=== PATIENT | male | born 1965 | race Asian ===

== ENCOUNTER 2017-03-22 16:09 | Emergency (ER) | payer BC, MEDICAID ==
[~2017-03-22] VITALS: Ht 172.7 cm; Wt 81.6 kg
[~2017-03-22 16:09] MED LIST: NORCO 5-325 TA1 EACH ORAL
[2017-03-22 16:15] VITALS: BP 163/72
[2017-03-22] MEDS ORDERED: Surgicel 4in x 8in TOPIC ONE ×2 (16:56→17:21)
--- NOTE | 2017-03-22 17:29 | Emergency Room Report ---
History of Present Illness General Chief Complaint: General Complaint Source: Patient Present Illness HPI Patient presents with complaints of bleeding AV shunt Patient reports that the same thing happened about 2 weeks ago when the patient went to [facility] At this time denies any headache or visual changes denies any lightheadedness There was a 2 prong instruments in the left AV shunt after removing the first one there was heavy amount of bleeding Patient reports that he feels a scab had broken off A second prong was left in place And the patient sent to the ER He is awake alert and denies any other neuropathy or pain Allergies: Uncoded Allergies: HECTEROL (Allergy, Unknown, 03/22/17) Patient History Past Medical History: see triage record Pertinent Family History: none Reviewed Nursing Documentation: PMH: Agreed, PSxH: Agreed Nursing Documentation-PMH Past Medical History: No History, Except For Hx Cardiac Problems: No Hx Hypertension: Yes Hx Pacemaker: No Hx Asthma: No Hx COPD: No Hx Diabetes: Yes Hx Cancer: No Hx Gastrointestinal Problems: No Hx Dialysis: Yes - [facility], [facility], [facility] History Of Psychiatric Problem: No Hx Neurological Problems: No Hx Cerebrovascular Accident: No Hx Seizures: No Review of Systems All Other Systems: negative except mentioned in HPI Physical Exam Vital Signs Date Time Temp Pulse Resp B/P (MAP) Pulse Ox O2 Delivery O2 Flow Rate FiO2 03/22/17 15:58 99.3 90 20 177/89 94 Room Air Sp02 EP Interpretation: reviewed, normal General Appearance: well appearing, no apparent distress Head: normocephalic, atraumatic Eyes: bilateral eye PERRL, bilateral eye EOMI ENT: hearing grossly normal, normal pharynx, TMs + canals normal, uvula midline Neck: full range of motion, supple, no meningismus, no bony tend Respiratory: lungs clear, normal breath sounds, no rhonchi, no respiratory distress, no retraction, no accessory muscle use Cardiovascular #1: normal peripheral pulses, regular rate, rhythm, no edema, no gallop, no JVD, no murmur Gastrointestinal: normal bowel sounds, non tender, soft, no mass, no organomegaly, non-distended, no guarding, no hernia, no pulsatile mass, no rebound Genitourinary: no CVA tenderness Musculoskeletal: normal inspection Neurologic: oriented x3, responsive, 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, motor strength/ tone normal, sensory intact Psychiatric: mood/affect normal Skin: other - Left upper arm had dressing on top and there was a prolonged in place from dialysis, this was removed without any incidents, pressure dressing was applied good thrill on the AV shunt Lymphatic: normal inspection, no adenopathy Procedures Laceration/Wound Repair Progress The area in question left upper AV fistula had pressure dressing applied After further observation, the pressure was minimally released in patient continues to do well at this time stable for followup, Medical Decision Making Diagnostic Impression: Primary Impression: bleeding av fistula ER Course Given the patient's presentation The second needle it was left in place was removed Pressure dressing was applied to the arm Patient was observed Remains hemodynamically stable appropriate thrill is palpated over the fistula Patient's discomfort reevaluated and he feels comfortable At this time the dressing will remain in place And patient will have followup with nephrology Last Vital Signs Date Time Temp Pulse Resp B/P (MAP) Pulse Ox O2 Delivery O2 Flow Rate FiO2 03/22/17 15:58 99.3 90 20 177/89 94 Room Air Status: improved Disposition: HOME, SELF-CARE Condition: Improved Additional Instructions: Patient is provided with the discharge instructions notified to follow up with primary doctor in the next 2-3 days otherwise return to the er with any worsening symptoms. Please note that this report is being documented using [employer] technology. This can lead to erroneous entry secondary to incorrect interpretation by the dictating instrument. BECKY GREEN D.O. Mar 22, 2017 17:29
[2017-03-22 17:37] VITALS: BP 158/71
[2017-03-22 18:13] VITALS: BP 158/81
== END 2017-03-22 18:15 | disposition home or self-care (01) ==
LOC: EDUNIT# 16:09 → EDBD 16:09 → EMR 17:00
DX: T82.838A Hemorrhage due to vascular prosthetic devices, implants and grafts, initial encounter (principal); X58.XXXA Exposure to other specified factors, initial encounter; Y93.9 Activity, unspecified; Y92.9 Unspecified place or not applicable; Z88.8 Allergy status to other drugs, medicaments and biological substances; I10 Essential (primary) hypertension; E11.9 Type 2 diabetes mellitus without complications
CPT/HCPCS: 99283